=== PATIENT | male | born 1980 | race Caucasian/White ===

== ENCOUNTER → 2022-05-26 | Outpatient (CLI) | payer OTHER ==
--- NOTE | 2022-05-26 12:54 | CA ---
Exercise Stress Test Report Name: Milan Jean Exam Date: 05/26/2022 10:13 Exam Location: [place] Stress Ht (in): 73 Wt (lb): 324 BSA: 2.64 Ordering Phys: Mike Ferreira Referring Phys: AKIL, Technologist: Myron Melo Age: 41 Gender: M : 1980 Procedure CPT: Indications: R07.89 chest pain ICD-10 Codes: Patient History: Chest Pain and shortness of breath Medications: Meds past 24 hrs: Pretest Chest Pain: STRESS TEST Sami Protocol Exercise Duration (min:sec): 09:[address] Depressions (mm): Angina Score: Naidu Score: Resting HR (bpm): 67 Peak HR (bpm): 152 Resting BP (mmHg): 130 / 92 Peak BP (mmHg): 207 / 100 MPHR: 178 Target HR: 151 % MPHR: 85 METS: 10.3 Total Dose: Peak Dose: Atropine: Double Product: 12893 BP Response: Stress Termination: Reached target heart rate Stress Symptoms: Dyspnea Stress Summary: ECG ANALYSIS Resting ECG: Stress ECG: CONCLUSIONS Baseline EKG revealed normal sinus rhythm without significant ST and T-wave changes. Patient walked on a standard Sami protocol for 9 minutes and achieved a maximum heart rate of 152 bpm which is more than 85% of predicted maximal. He did not have any angina. There was no significant arrhythmia. Peak blood pressure was 207/100. By EKG criteria this is a negative stress test with fair exercise capacity. The nuclear scan results which are more pertinent will be reported by the radiologist Dr. Ramya Blevins MD (Electronically Signed) Final Date: 26 May 2022 12:53
--- NOTE | 2022-05-28 15:23 | NM ---
EXAMINATION TYPE: NM stress cardiolite complete DATE OF EXAM: 05/26/2022 COMPARISON: NONE HISTORY: Chest pain TECHNIQUE: After the intravenous administration of 10.1 mCi Tc 99m Sestamibi - Cardiolite resting SP ECT images acquired 45 minutes post injection. At peak stress 25.8 mCi Tc 99m Sestamibi - Stress images obtained 15 minutes post injection The patient was stressed on the treadmill. 85% of predicted maximum heart rate achieved. FINDINGS: No fixed defects are evident. No reversible stress defects on Spect images. Wall motion is normal. Ejection fraction is calculated to be 56 %. IMPRESSION: 1. No stress-induced ischemic changes.
== END | disposition home or self-care (01) ==
LOC: RADNMMAIN 08:05
PROVIDERS: ATTEND Family Medicine
DX: R07.89 Other chest pain (principal)
CPT/HCPCS: 93017; 78452; A9500

== ENCOUNTER → 2022-08-02 | Outpatient (CLI) | payer OTHER ==
[2022-08-02 15:05] LABS: % Iron Saturation 34.5 (15.00-50.00); African American GFR (CKD) 124.4 (60.0-200.0); Albumin 4.3 g/dL (3.8-4.9); Albumin/Globulin Ratio 1.4 (1.60-3.17); Anion Gap 8.9 mmol/L (10.00-18.00); BUN/Creat Ratio 11.57 Ratio (12.00-20.00); Blood Urea Nitrogen 9.9 mg/dL (9.0-27.0); Calcium 9.3 mg/dL (8.7-10.3); Carbon Dioxide 27.2 mmol/L (20.0-27.5); Globulin 3.1 g/dL (1.6-3.3); Non-African American GFR(CKD) 107.3 (60.0-200.0); Potassium 4.6 mmol/L (3.5-5.5); Total Bilirubin 0.5 mg/dL (0.30-1.20); Total Protein 7.3 g/dL (6.2-8.2)
[2022-08-02 16:20] LABS: Ceruloplasmin 20.5 mg/dL (20.0-60.0)
[2022-08-02 16:30] LABS: Hepatitis A Antibody IgM Nonreactive (Nonreactive); Hepatitis B Core IgM Nonreactive (Nonreactive); Hepatitis B Surface Antigen Nonreactive (Nonreactive); Hepatitis C IgG Antibody Nonreactive (Nonreactive)
[2022-08-03 05:17] LABS: EBV - VCA IgM <10.0 U/mL (<36.0)
[2022-08-03 12:04] LABS: Smooth Muscle Antibody 6 UNITS (<20)
== END | disposition home or self-care (01) ==
LOC: LABWHC1 08:57
PROVIDERS: ATTEND Internal Medicine
DX: R74.01 Elevation of levels of liver transaminase levels (principal)
CPT/HCPCS: 36415; 80053; 80074; 82103; 82104; 82390; 82525; 83516; 83540; 83550; 86038; 86645; 86665

== ENCOUNTER → 2023-11-25 | Outpatient (CLI) | payer OTHER ==
--- NOTE | 2023-11-25 08:04 | US ---
EXAMINATION TYPE: US abdomen comp/pelvis limited DATE OF EXAM: 11/25/2023 COMPARISON: NONE CLINICAL INDICATION: Male, 43 years old with history of R10.84 GENERALIZED ABDOMINAL PAIN; EXAM MEASUREMENTS: Liver Length: 20.0 cm Gallbladder Wall: 0.3 cm CBD: 0.5 cm Spleen: 14.7 cm Right Kidney: 13.0 x 6.1 x 6.6 cm Left Kidney: 12.9 x 5.1 x 5.7 cm Pancreas: Obscured by bowel gas Liver: Increased attenuation, enlarged, heterogeneous Gallbladder: lumen clear, slightly distended CBD: wnl Spleen: Enlarged Right Kidney: No hydronephrosis or masses seen Left Kidney: No hydronephrosis or masses seen Upper IVC: wnl Abd Aorta: Obscured by overlying bowel gas Bladder: wnl Bilateral Jets Seen No IMPRESSION: 1. there is evidence for splenomegaly. 2. Hepatomegaly with underlying hepatic steatosis.
== END | disposition home or self-care (01) ==
LOC: RADUSWWP 07:17
PROVIDERS: ATTEND Internal Medicine
DX: R10.84 Generalized abdominal pain (principal); R16.2 Hepatomegaly with splenomegaly, not elsewhere classified; K76.0 Fatty (change of) liver, not elsewhere classified
CPT/HCPCS: 76700; 76857

== ENCOUNTER → 2023-12-21 | Outpatient (CLI) | payer OTHER ==
[2023-12-21 15:33] LABS: Protein, Total 8.5 g/dL (6.2-8.2)
[2023-12-21 15:37] LABS: Hepatitis B Surface Antigen Nonreactive (Nonreactive); Hepatitis C IgG Antibody Nonreactive (Nonreactive)
[2023-12-21 15:52] LABS: ALT 51 U/L (10-49); AST 79 U/L (14-35); Albumin 3.5 g/dL (3.8-4.9); Albumin/Globulin Ratio 0.71 Ratio (1.60-3.17); Alkaline Phosphatase 130 U/L (41-126); BUN/Creat Ratio 12.57 Ratio (12.00-20.00); Basophils # (A) 0.08 X 10*3/uL (0.00-0.10); Basophils % (A) 1.2 %; Blood Urea Nitrogen 8.8 mg/dL (9.0-27.0); Calcium 9.4 mg/dL (8.7-10.3); Carbon Dioxide 30.8 mmol/L (21.6-31.8); Chloride 101 mmol/L (96-109); Eosinophils # (A) 0.28 X 10*3/uL (0.04-0.35); Eosinophils % (A) 4.1 %; Globulin 4.9 g/dL (1.6-3.3); Glucose 112 mg/dL (70-110); HCT 40.9 % (39.6-50.0); HGB 13.7 g/dL (13.0-17.0); Lymphocytes # (A) 2.34 X 10*3/uL (0.90-5.00); Lymphocytes % (A) 34.2 %; MCH 34.9 pg (27.0-32.0); MCHC 33.5 g/dL (32.0-37.0); MCV 104.1 FL (80.0-97.0); Mean Platelet Volume 12.1 FL (9.5-12.2); Monocytes % (A) 10.2 %; NRBC Per 100 WBC 0 X 10*3/uL (0.00-0.01); Neutrophils # (A) 3.44 X 10*3/uL (1.80-7.70); Neutrophils % (A) 50.2 %; Platelet Count 166 X 10*3/uL (140-440); Potassium 3.7 mmol/L (3.5-5.5); RBC 3.93 X 10*6/uL (4.40-5.60); RDW 13.7 % (11.5-14.5); Sodium 140 mmol/L (135-145); Total Bilirubin 1.3 mg/dL (0.3-1.2); Total Protein 8.4 g/dL (6.2-8.2); WBC 6.85 X 10*3/uL (4.50-10.00)
[2023-12-21 15:57] LABS: Ceruloplasmin 25.8 mg/dL (20.0-60.0)
[2023-12-21 16:11] LABS: Erythrocyte Sedimentation Rate 34 mm/Hr (0-15)
[2023-12-21 19:27] LABS: Gliadin AB IgA, Deaminated Negative (Negative); Gliadin AB IgA, Unit 1.1 U/mL
[2023-12-22 11:04] LABS: Smooth Muscle Antibody 11 UNITS (<20)
[2023-12-22 15:11] LABS: Gliadin AB IgG, Deaminated Negative (Negative); Gliadin AB IgG, Unit 1.3 U/mL
[2023-12-28 07:31] LABS: Albumin 3.51 g/dL (3.80-4.90); Gamma Globulin 3.13 g/dL (0.70-1.50)
== END | disposition home or self-care (01) ==
LOC: LABWHC1 10:25
PROVIDERS: ATTEND Nurse Practitioner Family
DX: K52.9 Noninfective gastroenteritis and colitis, unspecified (principal); R74.01 Elevation of levels of liver transaminase levels; R63.4 Abnormal weight loss
CPT/HCPCS: 36415; 80053; 81596; 82103; 82390; 83516; 84165; 84443; 85025; 85652; 86038; 86140; 86803; 87340

== ENCOUNTER → 2024-07-02 | Outpatient (CLI) | payer OTHER ==
--- NOTE | 2024-07-02 09:09 | US ---
EXAMINATION TYPE: US liver DATE OF EXAM: 07/02/2024 COMPARISON: US 11/25/2023 CLINICAL INDICATION: Male, 43 years old with history of K74.60 CIRRHOSIS OF LIVER; Cirrhosis. TECHNIQUE: Grayscale and color Doppler imaging of the right upper quadrant. FINDINGS: EXAM MEASUREMENTS: Liver Length: 19.5 cm Gallbladder Wall: 0.32 cm CBD: Obscured Right Kidney: 14.1 x 6.4 x 5.3 cm HEEL NAIL RASPER NOTES: Exam is limited due to gas and patient body habitus. Pancreas: Obscured Liver: *Enlarged, heterogeneous, increased echogenicity, increased attenuation. Gallbladder: Distended- Measures 5.4 cm in width and 9.0 cm in length. Evidence for sonographic Payne's sign: No CBD: Obscured Right Kidney: Enlarged. No hydronephrosis or masses seen. Slightly limited due to gas. IMPRESSION: 1. Cardiomegaly with nonspecific pattern the liver suggestive of underlying hepatic steatosis or hepa tocellular disease. 2. The gallbladder is distended but there is no wall thickening or gallstones. Correlate clinically. [facility], , 07/02/2024 9:07 AM
== END | disposition home or self-care (01) ==
LOC: RADUSMAIN 07:54
PROVIDERS: ATTEND Internal Medicine
DX: K74.60 Unspecified cirrhosis of liver (principal); K82.8 Other specified diseases of gallbladder; I51.7 Cardiomegaly
CPT/HCPCS: 76705